=== PATIENT | male | born 1925 | race African-American/Black ===

== ENCOUNTER 2017-01-01 13:02 | Emergency (ER) | payer OTHER ==
[~2017-01-01] VITALS: Ht 172.7 cm; Wt 74.4 kg
[~2017-01-01 13:02] MED LIST: ASPIR 8181 MG PO; AZILECT1 MG PO; BYSTOLIC 5 MG5 M1 PO; CALCIUM 600 +1 EAC1 PO; FLOMAX0.4 MG PO; HYDROCHLOROTHIA25 M2 PO; LISINOPRIL20 MG PO; LUTEIN20 M1 PO; MAGOX 400400 MG PO; MELATIN3 MG PO; NORFLEX100 MG PO; SINEMET 25-1001 EAC1 PO; ULTRAM 50MG TAB50 MG PO; UNICOMPLEX M TA1 TA1 PO; VITAMIN D1000 UNI1 PO; XARELTO15 MG PO
[2017-01-01] MEDS ORDERED: AVAPRO300 MG PO (14:16)
[2017-01-01] MEDS ORDERED: LOPRESSOR50 PO (14:17)
[2017-01-01] MEDS ORDERED: PROSCAR 5MG TABL5 MG PO (14:17)
[2017-01-01] MEDS ORDERED: NORCO 5-325 TA1 EACH PO (15:18)
[2017-01-01] MEDS ORDERED: VALIUM2 MG PO (15:18)
[2017-01-01] MEDS ORDERED: MOBIC15 MG PO (15:18)
[2017-01-01 15:52] VITALS: BP 182/77
== END 2017-01-01 15:53 | disposition home or self-care (01) ==
LOC: ER 13:02
DX: M46.1 Sacroiliitis, not elsewhere classified (principal); I10 Essential (primary) hypertension; G20 Parkinson's disease

== ENCOUNTER 2017-06-24 16:07 | Emergency (ER) | payer OTHER ==
[~2017-06-24] VITALS: Ht 170.2 cm; Wt 74.8 kg
--- NOTE | ~2017-06-24 | EKG ---
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: HAYLEY : 1925 Requested By: James Pond Order Number: [id number] MD: Mahendra Pickering Measurements Intervals [place] Rate: 65 P: 8 ME: 207 QRS: -49 QRSD: 112 T: 55 QT: 426 QTc: 443 Interpretive Statements Sinus rhythm Probable left atrial enlargement LAD, consider left anterior fascicular block No previous ECG available for comparison Electronically Signed On 06-25-2017 8:43:39 CDT by Mahendra Pickering [email or web address] <ELECTRONICALLY SIGNED> By: Mahendra Pickering MD, [facility] 06/25/17 0843 1720 1720 Mahendra Pickering MD, FACC /EPI
[~2017-06-24 16:07] MED LIST changes: +AVAPRO300 MG PO; +LIDODERM1 EACH TP; +LIDODERM1 EACH TRANSDERM; +LIDOPATCH1 EACH TRANSDERM; +LOPRESSOR50 PO; +MOBIC15 MG PO; +NORCO 5-325 TA1 EACH PO; +PROSCAR 5MG TABL5 MG PO; +PROTONIX40 M1 PO; +TIZANIDINE4 MG/1 TA1 PO; +TRAMADOL 50 MG50 MG PO; +VALIUM2 MG PO; +VALIUM5 MG PO; +VOLTAREN GEL 1100 G2 TOP; +VOLTAREN100 GM TOP
[2017-06-24 18:06] LABS: HEMATOCRIT 34.8 % (42.0-52.0); HEMOGLOBIN 11.8 gm/dL (14.0-18.0); MCH 30.7 pg (26.0-34.0); MCV 90.1 fL (80.0-100.0); PLATELET COUNT 134 thou/uL (150-400); RBC 3.86 mil/uL (4.50-6.00); RDW 14.2 % (10.5-14.5); WBC 5.4 thou/uL (4.0-11.0)
[2017-06-24 18:19] LABS: ANION GAP 5 mmol/L (7-16); BUN 22 mg/dL (7-18); CALCIUM 9.3 mg/dL (8.5-10.1); CHLORIDE 103 mmol/L (98-107); CO2 32 mmol/L (21-32); GLUCOSE 96 mg/dL (74-106); POTASSIUM 4.2 mmol/L (3.5-5.1); SODIUM 140 mmol/L (136-145)
[2017-06-24 18:27] LABS: TROPONIN-I < 0.04 ng/mL (<0.06)
[2017-06-24 19:36] LABS: ABSOLUTE NEUTROPHILS 3.5 thou/uL (1.4-8.2)
== END 2017-06-25 00:16 | disposition home or self-care (01) ==
LOC: ER 16:07
PROVIDERS: Physician Assistant
DX: I95.1 Orthostatic hypotension (principal); G20 Parkinson's disease